=== PATIENT | male | born 1975 | race Caucasian/White ===

== ENCOUNTER 2016-05-15 17:16 | Emergency (ER) | payer MEDICAID ==
[~2016-05-15] VITALS: Ht 177.8 cm; Wt 80.7 kg
[2016-05-15 17:45] VITALS: BP 122/90
[2016-05-15 17:48] LABS: Basophils # (auto) 0 uL; Basophils % (auto) 0.3 % (0.0-2.0); Eosinophils # (auto) 0.3 uL; Eosinophils % (auto) 2.3 % (0.0-7.0); Hemoglobin 15.3 g/dL (13.5-17.5); Lymphocytes # (auto) 3.9 uL; Lymphocytes % (auto) 26.7 % (10.0-50.0); Mean Corpuscular Hemoglobin 28.7 pg (28.0-32.0); Mean Corpuscular Hgb Conc. 33.2 g/dL (32.0-36.0); Mean Corpuscular Volume 86.3 fL (80.0-100.0); Mean Platelet Volume 7.8 fL (7.4-10.4); Monocytes # (auto) 1.3 uL; Monocytes % (auto) 8.8 % (0.0-12.0); Neutrophils % (auto) 61.9 % (37.0-80.0); Platelet Count (auto) 378 10^3/uL (140-450); Red Cell Distribution Width 13.6 % (11.6-16.0); White Blood Cell 14.6 10^3/uL (4.4-10.8)
[2016-05-15 18:03] LABS: Alkaline Phosphatase 112 U/L (45-117); Anion Gap 9 (5-15); Aspartate Aminotransferase 23 U/L (15-37); BUN/Creatinine Ratio 11.6; Bilirubin, Total 0.3 mg/dL (0.2-1.0); Blood Urea Nitrogen 14 mg/dL (7-18); Calcium 9.1 mg/dL (8.5-10.1); Carbon Dioxide 26 mmol/L (21-32); Chloride 107 mmol/L (98-107); GFR African American 86 mL/min; GFR Non-African American 71 mL/min; Glucose 99 mg/dL (74-106); Potassium 4.2 mmol/L (3.5-5.1); Sodium 142 mmol/L (136-145); Total Protein 7.9 g/dL (6.4-8.2)
[2016-05-15] MEDS ORDERED: ASPirin 81 mg TAB PO ONE (19:30)
[2016-05-15 20:14] LABS: INR 0.93 (0.9-1.15)
[2016-05-15 20:25] LABS: B-Type Natriuretic Peptide 0.48 pg/mL (0-100)
[2016-05-15 20:28] LABS: Temperature: 23.4 C (20.0-25.0)
== END 2016-05-15 21:01 | disposition home or self-care (01) ==
LOC: ER 17:16
DX: R07.89 Other chest pain (principal); F15.10 Other stimulant abuse, uncomplicated; Z88.2 Allergy status to sulfonamides
CPT/HCPCS: 36415; 71010; 80053; 83735; 83880; 84443; 84484; 85025; 85379; 85610; 85730; 93005

== ENCOUNTER → 2021-08-07 | Emergency (ER) | payer MEDICAID ==
[~2021-08-07] VITALS: Ht 175.3 cm; Wt 86.2 kg
[~2021-08-07] MED LIST: HYDR-4798 PO; HYDROcodone-ACET 10/325MG TAB PO ONE; IBU600T PO; IBUP800T27 PO
[2021-08-07 17:51] VITALS: BP 129/83
== END | disposition home or self-care (01) ==
LOC: EDUNIT# 13:24 → ER 13:27 → EDBD 13:27
DX: S22.41XA Multiple fractures of ribs, right side, initial encounter for closed fracture (principal); W18.39XA Other fall on same level, initial encounter; Y93.89 Activity, other specified; Y92.89 Other specified places as the place of occurrence of the external cause; Y99.8 Other external cause status
CPT/HCPCS: 71250; 74176

== ENCOUNTER 2024-05-24 08:28 | Emergency (ER) | payer MEDICAID ==
[~2024-05-24] VITALS: Ht 177.8 cm; Wt 100.0 kg
[~2024-05-24 08:28] MED LIST changes: -HYDROcodone-ACET 10/325MG TAB PO ONE; +IBUP-1456 PO; -IBUP800T27 PO
--- NOTE | 2024-05-24 08:37 | ED.PDOC ---
HPI Comments 48 year old male RITA presents to the ED with chief complaint of chest pain. Patient reports that he was at his storage unit 30 minutes ago when he suddenly began to experiencing substernal chest burning that radiated up his throat and is associated with SOB. Patient relays that his pain is worse with deep breaths, but palpation of his chest produces no pain. EMS states they provided 324mg of ASA and 0.4 of NTG with no relief in pain noted along with the patient's HR celsa g down to the 50s when started on IV fluids. Patient denies any dizziness, headache, fever, chills, N/V/D, abdominal pain, or cough. 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, Medications, Allergies Allergies: Coded Allergies: Sulfamethoxazole w/Trimethoprim (Verified Allergy, Unknown, 10/05/15) Home Meds Active Scripts Hydrocodone-Acetaminophen (Hydrocodone Bitartrate/AC 10-325 mg) 1 Tab Tab, 1 TAB PO QIDPRN, #20 TAB Prov:SANJAY DREW MD 08/07/21 Ibuprofen (Ibuprofen) 800 Mg Tab, 800 MG PO TID, #30 MG Prov:SANJAY DREW MD 08/07/21 Hydrocodone-Acetaminophen (Hydrocodone Bitartrate/AC 10-325 mg) 1 Tab Tab, 1 TAB PO QIDP, #20 TAB Prov:SANJAY DREW MD 08/07/21 Ibuprofen (Ibuprofen) 800 Mg Tab, 800 MG PO TID, #30 MG Prov:SANJAY DREW MD 08/07/21 Ibuprofen Micronized (MOTRIN TABLET) 600 Mg Tb, 800 MG PO TID PRN, #40 TAB *Black box warning-NSAIDS can increase risk of AL & hypertension, GI irritation, ulceration, bleed, perferation. Do not use post cardiac surgery. Use short duration/lowest effective dose. Prov:SANJAY DREW MD 08/07/21 Information Source: Patient, Emergency Med Personnel Mode of Arrival: EMS Severity: Moderate Timing: Minutes Duration: Since onset Prehospital treatment: None Location: Substernal Radiation: Other (Throat) Quality: Burning Onset: At Rest Cardiac Risk Factors: Smoker, HTN PE Risk Factors: None History of: None Associated Signs and Symptoms: SOB Past Medical History PAST MEDICAL HISTORY: HTN Surgical History: Denies all surgeries Family History Family History: Reviewed,noncontributory to illness Social History Smoker: Cigarettes Alcohol: Denies ETOH Use Drugs: Marijuana, Methamphetamine Lives In: Home Constitutional: denies: chills, diaphoresis, fatigue, fever, malaise, sweats, weakness, others EENTM: denies: blurred vision, double vision, ear bleeding, ear discharge, ear drainage, ear pain, ear ringing, eye pain, eye redness, hearing loss, mouth pain, mouth swelling, nasal discharge, nose bleeding, nose congestion, nose pain, photophobia, tearing, throat pain, throat swelling, voice changes, others Respiratory: reports: shortness of breath; denies: cough, hemoptysis, orthopnea, SOB at rest, SOB with excertion, stridor, wheezing, others Cardiovascular: reports: chest pain; denies: dizzy spells, diaphoresis, Dyspnea on exertion, edema, irregular heart beat, left arm pain, lightheadedness, palpitations, PND, syncope, others Gastrointestinal: denies: abdomen distended, abdominal pain, blood streaked bowels, constipated, diarrhea, dysphagia, difficulty swallowing, hematemesis, melena, nausea, poor appetite, poor fluid intake, rectal bleeding, rectal pain, vomiting, others Genitourinary: denies: burning, dysuria, flank pain, frequency, hematuria, incontinence, penile discharge, penile sore, pain, testicle pain, testicle swelling, urgency, others Neurological: denies: dizziness, fainting, headache, left sided numbness, left sided weakness, numbness, paresthesia, pre-existing deficit, right sided numbness, right sided weakness, seizure, speech problems, tingling, tremors, weakness, others Musculoskeletal: denies: back pain, gout, joint pain, joint swelling, muscle pain, muscle stiffness, neck pain, others Integumetry: denies: bruises, change in color, change in hair/nails, dryness, laceration, lesions, lumps, rash, wounds, others Allergic/Immunocompromised: denies: Difficulty Healing, Frequent Infections, Hives, Itching, others Hematologic/Lymphatic: denies: anemia, blood clots, easy bleeding, easy bruising, swollen glands, others Endocrine: denies: excessive hunger, excessive sweating, excessive thirst, excessive urination, flushing, intolerance to cold, intolerance to heat, unexplained weight gain, unexplained weight loss, others Psychiatric: denies: anxiety, bipolar disorder, depression, hopeless, panic disorder, schizophrenia, sleepless, suicidal, others All Other Systems: Reviewed and Negative Physical Exam General Appearance: Moderate Distress, Normal HEENT: Normal ENT Inspection, PERRL/EOMI Neck: Full Range of Motion, Non-Tender, Normal, Normal Inspection Respiratory: Chest Non-Tender, Lungs Clear, No Accessory Muscle Use, No Respiratory Distress, Normal Breath Sounds Cardiovascular: No Edema, No JVD, No Murmur, No Gallop, Normal Peripheral Pulse s, Regular Rate/Rhythm Breast Exam: Deferred Gastrointestinal: No Organomegaly, Non Tender, No Pulsatile Mass, Normal Bowel Sounds, Soft Genitalia: Deferred Pelvic: Deferred Rectal: Deferred Extremities: No calf tenderness, Normal capillary refill, Normal inspection, Normal range of motion, Non-tender, No pedal edema Musculoskeletal : Apperance: Normal Neurologic: Alert, 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 Was a procedure done?: No CP Differential Dx Differential Diagnosis: A-fib, A-Flutter, Angina, Anxiety / Panic Attack, Atrial Dysrhythmia, Electrolyte Disorder Differential Diagnosis: Esophageal reflux/spasm, Gastritis X-Ray, Labs, Meds, VS Vital Signs Date Time Temp Pulse Resp B/P (MAP) Pulse Ox O2 Delivery O2 Flow Rate FiO2 05/24/24 08:46 97.7 65 18 103/70 (81) 100 97.7 05/24/24 08:46 65 18 100 Room Air 05/24/24 08:37 16 98 Room Air* 0 21 05/24/24 08:33 98.3 89 16 117/80 (92) 98 98.3 05/24/24 08:30 67 Lab Test 05/24/24 08:38 Range/Units Troponin I High Sensitivity Pending Current Medications Medications (Trade) Dose Ordered Sig/Devante Route Start Time Stop Time Status Last Admin Belladonna Alkaloids/ Phenobarbital ( Elixir) 10 ml ONCE ONCE PO 05/24/24 08:45 05/24/24 08:46 DC 05/24/24 08:41 Al Hydrox/Mg Hydrox/Simethicone (Maalox Plus) 30 ml ONCE ONCE PO 05/24/24 08:45 05/24/24 08:46 DC 05/24/24 08:40 Lidocaine HCl (Xylocaine 2% Viscous) 15 ml ONCE ONCE PO 05/24/24 08:45 05/24/24 08:46 DC 05/24/24 08:40 Patient alert. He is anxious. Musculoskeletal pain. Vitals stable. Answering questions. Continues to smoke cigarettes. Counseled patient on smoking cigarettes for 15 minutes. Possible gastritis. Was given GI cocktail. EKG reviewed does not show any acute process. No leg swelling. No discoloration. No shortness a breath. Respiratory rate within normal limits. Heart rate within normal limits. Saturation pristine on room air. Explained to the patient. Was told to follow up with his primary care physician. Was told to come back if there is any problem. Time of 1ST Reevaluation: 09:33 Reevaluation 1ST: Improved Patient Education/Counseling: Diagnosis, Treatment Family Education/Counseling: No Family Present Additional Information The following tests were ordered, and results were reviewed by me: Troponin, EKG Additional Information was gathered from interviewing the following independent historians: EMS I reviewed and agreed with the following test results read by other providers: None I discussed treatment and results with medical personnel and: Patient Comprehensive systems review obtained and negative except for what is stated in the HPI. Departure 1 Departure Time of Disposition: 08:43 Impression: Primary Impression: Musculoskeletal pain Additional Impression: Needs smoking cessation education Disposition: 01 HOME / SELF CARE / HOMELESS Condition: Good Discharged With: Self Critical Care Note Critical Care Time?: No Stability Stability form required: No Heart Score Heart Score: Heart Score Response (Comments) Value History Slightly Suspicious 0 EKG Normal 0 Age 45-64 1 Risk Factors No known risk factors 0 Troponin Normal limit 0 Total 1 I personally scribed for ILAN CRUM MD ([email or web address]) on 05/24/24 at 08:37. Electronically submitted by Deny Tang ([email or web address]). ILAN CRUM MD May 24, 2024 08:37
[2024-05-24] MEDS: MAALOX PLUS or MAALOX 30 ML PO ONE (08:40)
[2024-05-24] MEDS: LIDOCAINE VISCOUS 2% 15ML UD PO ONE (08:40)
[2024-05-24] MEDS: DONNATAL 5ml ORAL Elix (BELLADONNA ALK-PHENOBARB) PO ONE (08:41)
[2024-05-24 08:46] VITALS: BP 103/70; PULSE 65; RESP 18; TEMP 97.7; O2SAT 100
--- NOTE | 2024-05-27 09:17 | ECG ---
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
== END 2024-05-24 09:46 | disposition left against medical advice (07) ==
LOC: ER 08:28 → EDBD 08:28 → ER 09:46
DX: M79.18 Myalgia, other site (principal); I10 Essential (primary) hypertension; F17.210 Nicotine dependence, cigarettes, uncomplicated; F12.90 Cannabis use, unspecified, uncomplicated; Z88.2 Allergy status to sulfonamides; Z79.1 Long term (current) use of non-steroidal anti-inflammatories (NSAID)
CPT/HCPCS: 36415; 84484; 93005

== ENCOUNTER 2025-01-18 09:46 | Emergency (ER) | payer MEDICAID ==
[~2025-01-18] VITALS: Ht 175.3 cm; Wt 83.0 kg
--- NOTE | 2025-01-18 11:12 | ED.PDOC ---
History of Present Illness(SKN HPI Comments 49 y.o female presents to the ED for an evaluation of a wound check. Patient has an abscess to the left forearm that presents with swelling and redness x 4 days and now states developing another abscess to the left posterior leg. He states now feeling malaise with chills and fevers. He denies any nausea, vomiting, or bleeding. Chief Complaint: Abscess Time Seen by MD: 11:00 Primary Care Provider: NONE History of Present Illness: Nurses Notes, Medications, Allergies Allergies: Coded Allergies: Sulfamethoxazole w/Trimethoprim (Verified Allergy, Unknown, 10/05/15) Home Meds Active Scripts Hydrocodone-Acetaminophen (Hydrocodone Bitartrate/AC 10-325 mg) 1 Tab Tab, 1 TAB PO QIDPRN, #20 TAB Prov:SANJAY DREW MD 08/07/21 Ibuprofen (Ibuprofen) 800 Mg Tab, 800 MG PO TID, #30 MG Prov:SANJAY DREW MD 08/07/21 Hydrocodone-Acetaminophen (Hydrocodone Bitartrate/AC 10-325 mg) 1 Tab Tab, 1 TAB PO QIDP, #20 TAB Prov:SANJAY DREW MD 08/07/21 Ibuprofen (Ibuprofen) 800 Mg Tab, 800 MG PO TID, #30 MG Prov:SANJAY DREW MD 08/07/21 Ibuprofen Micronized (MOTRIN TABLET) 600 Mg Tb, 800 MG PO TID PRN, #40 TAB *Black box warning-NSAIDS can increase risk of AR & hypertension, GI irritation, ulceration, bleed, perferation. Do not use post cardiac surgery. Use short duration/lowest effective dose. Prov:SANJAY DREW MD 08/07/21 Information Source: Patient Mode of Arrival: Ambulatory Severity: Moderate Timing: Days (4) Location: Arm, Leg Mechanism: Spontaneous Onset Developed: Generalized erythema Object: Unknown Wound Type: Abscess Associated Signs and Symptoms: Redness, Swelling, Pain Past Medical History PAST MEDICAL HISTORY: HTN Surgical History: Denies all surgeries Family History Family History: Reviewed,noncontributory to illness Social History Smoker: Cigarettes Alcohol: Denies ETOH Use Drugs: Marijuana, Methamphetamine Lives In: Home Constitutional: reports: chills, fever, malaise; denies: diaphoresis, fatigue, sweats, weakness, others EENTM: denies: blurred vision, double vision, ear bleeding, ear discharge, ear drainage, ear pain, ear ringing, eye pain, eye redness, hearing loss, mouth pain, mouth swelling, nasal discharge, nose bleeding, nose congestion, nose pain, photophobia, tearing, throat pain, throat swelling, voice changes, others Respiratory: denies: cough, hemoptysis, orthopnea, SOB at rest, shortness of breath, SOB with excertion, stridor, wheezing, others Cardiovascular: denies: chest pain, dizzy spells, diaphoresis, Dyspnea on exertion, edema, irregular heart beat, left arm pain, lightheadedness, palpitations, PND, syncope, others Gastrointestinal: denies: abdomen distended, abdominal pain, blood streaked bowels, constipated, diarrhea, dysphagia, difficulty swallowing, hematemesis, melena, nausea, poor appetite, poor fluid intake, rectal bleeding, rectal pain, vomiting, others Genitourinary: denies: burning, dysuria, flank pain, frequency, hematuria, incontinence, penile discharge, penile sore, pain, testicle pain, testicle swelling, urgency, others Neurological: denies: dizziness, fainting, headache, left sided numbness, left sided weakness, numbness, paresthesia, pre-existing deficit, right sided numbness, right sided weakness, seizure, speech problems, tingling, tremors, weakness, others Musculoskeletal: denies: back pain, gout, joint pain, joint swelling, muscle pain, muscle stiffness, neck pain, others Integumetry: reports: wounds; denies: bruises, change in color, change in hair/nails, dryness, laceration, lesions, lumps, rash, others Allergic/Immunocompromised: denies: Difficulty Healing, Frequent Infections, Hives, Itching, others Hematologic/Lymphatic: denies: anemia, blood clots, easy bleeding, easy bru ising, swollen glands, others Endocrine: denies: excessive hunger, excessive sweating, excessive thirst, e xcessive urination, flushing, intolerance to cold, intolerance to heat, unexplained weight gain, unexplained weight loss, others Psychiatric: denies: anxiety, bipolar disorder, depression, hopeless, panic disorder, schizophrenia, sleepless, suicidal, others All Other Systems: Reviewed and Negative Physical Exam General Appearance: No Apparent Distress, Normal HEENT: Normal ENT Inspection, Pharynx Normal, TMs Normal Neck: Full Range of Motion, Non-Tender, Normal, Normal Inspection Respiratory: Chest Non-Tender, Lungs Clear, No Accessory Muscle Use, No Respiratory Distress, Normal Breath Sounds Cardiovascular: No Edema, No JVD, No Murmur, No Gallop, Normal Peripheral Pulses, Regular Rate/Rhythm Breast Exam: Deferred Gastrointestinal: No Organomegaly, Non Tender, No Pulsatile Mass, Normal Bowel Sounds, Soft Genitalia: Deferred Pelvic: Deferred Rectal: Deferred Extremities: No calf tenderness, Normal capillary refill, Normal inspection, Normal range of motion, Non-tender, No pedal edema Musculoskeletal : Apperance: Normal 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 Was a procedure done?: Yes Sedation Sedation?: No Incision and Drainage Incision and Drainage: Abscess Location Left forearm Anesthetic: Lidocaine with Epi Preparation: Betadine Incision and Wound: Pus, Blood, Amount (10 mL) Informed consent obtained: Yes Risks/benefits/alt described: Yes Differential Diagnosis (INTG) Differential Diagnosis: Abscess, Cellulitis, Drug Reaction, Erythema multiforme X-Ray, Labs, Meds, VS Vital Signs Date Time Temp Pulse Resp B/P (MAP) Pulse Ox O2 Delivery O2 Flow Rate FiO2 01/18/25 09:49 97.9 80 20 146/102 100 97.9 Current Medications Medications (Trade) Dose Ordered Sig/Devante Route Start Time Stop Time Status Last Admin Lidocaine/ Epinephrine 10 ml ONCE ONCE SC 01/18/25 11:15 01/18/25 11:16 DC 01/18/25 11:40 Time of 1ST Reevaluation: 11:05 Reevaluation 1ST: Unchanged Patient Education/Counseling: Diagnosis, Treatment, Prognosis Family Education/Counseling: No Family Present SEPSIS Sepsis Screen Date sepsis recognized/suspect: Jan 18, 2025 Time Sepsis recognized/suspect: 0951 Recent Procedure: No On Antibiotic Therapy: No Respiratory Rate >20: No Heart Rate >90: No Temp<36 C (96.8 F) or >38.3 C: No SBP <90 or MAP <65 mmHG: No New Acute Mental Status Change: No Is the patient on CPAP, BIPAP,: No Vital Signs Date Time Temp Pulse Resp B/P (MAP) Pulse Ox O2 Delivery O2 Flow Rate FiO2 01/18/25 09:49 97.9 80 20 146/102 100 97.9 Medications Medications Dose Ordered Sig/Devante Route Start Time Stop Time Status Last Admin Dose Admin Lidocaine/ Epinephrine 10 ml ONCE ONCE SC 01/18/25 11:15 01/18/25 11:16 DC 01/18/25 11:40 Departure 1 Departure Time of Disposition: 12:51 (Patient had an abscess on his left arm as well as cellulitis on his left leg. The performed incision and drainage and we will discharge patient home with antibiotics.) Impression: Primary Impression: Abscess Additional Impression: Cellulitis Disposition: HOME / SELF CARE / HOMELESS Condition: Stable Additional Instructions: You have cellulitis. This is a skin infection. You were prescribed antibiotics. Please take as directed. You can take tylenol and motrin as needed for pain. It is important that you follow up with your regular doctor within one week to ensure you are doing well. If your symptoms worsen or you have any other concerns then please return to the ER. e-Prescriptions Clindamycin Hcl (Clindamycin Hcl) 300 Mg Cap 1 CAP PO TID for 7 Days, #21 CAP Prov: RADHA GAVIN MD 01/18/25 Discharged With: Self Critical Care Note Critical Care Time?: No Stability Stability form required: No I personally scribed for RADHA GAVIN MD ([email or web address]) on 01/18/25 at 11:11. Electronically submitted by Melissa Trevino ([facility]). RADHA GAVIN MD Jan 18, 2025 11:11
[2025-01-18] MEDS: LIDOCAINE W/ EPINEPHRINE 1% 20ML VIAL SC ONE (11:40)
[2025-01-18] MEDS ORDERED: CLIN1CAP70 PO (12:53)
[2025-01-18 14:19] VITALS: BP 122/74; PULSE 72; RESP 20; TEMP 98; O2SAT 98
== END 2025-01-18 14:27 | disposition home or self-care (01) ==
LOC: ER 09:46
DX: L02.612 Cutaneous abscess of left foot (principal); L03.116 Cellulitis of left lower limb; F17.210 Nicotine dependence, cigarettes, uncomplicated; I10 Essential (primary) hypertension; Z88.2 Allergy status to sulfonamides; Z88.1 Allergy status to other antibiotic agents; Z79.899 Other long term (current) drug therapy
CPT/HCPCS: 10060